=== PATIENT | male | born 1970 | race Caucasian/White ===

== ENCOUNTER → 2021-05-24 | Day surgery (SDC) | payer OTHER ==
[~2021-05-24] MED LIST: ASPIRIN CHEWABL81 MG PO; IBUPROFEN200 M1 PO; LISINOPRIL2.5 MG PO; NAPROXEN500 MG PO; NOVOLOG FL100 UNIT/1 INJ; OMEPRAZOLE40 MG PO; ONE-A-DAY MENO1 EACH PO; ROBAXIN 750 MG750 MG PO; TYLENOL325 MG PO; ZINC50 M1 PO
== END | disposition home or self-care (01) ==
LOC: OR 06:28
DX: Z12.11 Encounter for screening for malignant neoplasm of colon (principal); D12.8 Benign neoplasm of rectum; K64.1 Second degree hemorrhoids; K21.9 Gastro-esophageal reflux disease without esophagitis; I10 Essential (primary) hypertension; E11.9 Type 2 diabetes mellitus without complications; Z79.4 Long term (current) use of insulin; Z79.82 Long term (current) use of aspirin; Z79.899 Other long term (current) drug therapy; Z20.822 Contact with and (suspected) exposure to COVID-19
CPT/HCPCS: 82962; J2704; J7030; J7040